=== PATIENT | male | born 1940 | race Caucasian/White ===

== ENCOUNTER → 2017-07-11 11:03 | Outpatient (CLI) | payer MEDICARE | END | disposition home or self-care (01) | LOC: D.MRI 11:03 | DX: M54.16 Radiculopathy, lumbar region (principal) ==

== ENCOUNTER → 2017-11-08 11:35 | Outpatient (CLI) | payer MEDICARE | END | disposition home or self-care (01) | LOC: D.RAD 11:35 | DX: M25.511 Pain in right shoulder (principal) ==

== ENCOUNTER → 2018-09-12 09:19 | Outpatient (CLI) | payer MEDICARE | END | disposition home or self-care (01) | LOC: D.RAD 09:19 | DX: R05 Cough (principal) ==

== ENCOUNTER 2018-10-19 08:04 | Day surgery (SDC) | payer MEDICARE ==
[~2018-10-19] VITALS: Ht 185.4 cm; Wt 88.9 kg
[2018-10-19 08:45] LABS: HEMATOCRIT 44.3 % (42.0-54.0); HEMOGLOBIN 15.5 g/dL (13.5-17.5); MCH 31.8 pg (26.0-34.0); MCV 90.8 fL (80.0-100.0); MEAN PLATELET VOLUME 10.3 fL (7.4-10.4); RBC 4.88 10x6/uL (4.20-6.10); RDW 13.5 % (11.5-14.5); WBC 5.7 10x3/uL (4.8-10.8)
[2018-10-19 09:58] VITALS: BP 102/55; Ht 185.4 cm; Wt 88.9 kg
--- NOTE | 2018-10-19 12:35 | NUR ---
FL TRAY SERVED. UP TO BATHROOM. ICE WATER BROUGHT TO PT. FAMILY AT BEDSIDE.
--- NOTE | 2018-10-19 12:45 | NUR ---
1230-RETURNS TO ROOM FROM PACU. ALERT. USES URINAL IMMEDIATELY, BLOODY. 1240-DR ISRAEL IN TO REPORT AND ANSWER QUESTIONS. 1245-FULL LIQUIDS SERVED.
--- NOTE | 2018-10-19 13:00 | NUR ---
TOLERATED FL TRAY. IV DC'D WITH CATHETER INTACT. RELATES HE IS READY TO GO HOME.
--- NOTE | 2018-10-19 13:08 | OP ---
PATIENT NAME: CINTHYA DURAN MEDICAL RECORD: [id number] :42 LOCATION:[facility] ADMISSION DATE: SURGEON: MELITA ISRAEL MD DATE OF OPERATION: 10/19/2018 SURGEON: Melita Israel MD ANESTHESIA: TIVA by BRADLEY Olivia CRNA DIAGNOSES: Obstructive benign prostatic hypertrophy, PSA 1.7 on 08/16/2017, ISABELLA gives a 40 gram prostate, IPSS score is 17 and quality of life score is 5. PROCEDURE: UroLift times 5 implants deployed, 4 held in the box configuration. FINDINGS: Obstructive bladder neck and anterior urethra, nonobstructive lateral lobes. ESTIMATED BLOOD LOSS: None. SPECIMENS: None. CLINICAL HISTORY: This is a 78-year-old male, who has obstructive voiding symptoms. He has nocturia times 1-5. He has had problems with nocturia since he was age 31. He now has hesitancy as well as a weak flow. He is not taking any medications for BPH and he does not want to be taking medications for BPH. Therefore, he wishes to proceed with a UroLift implantation. He is not allergic to any medication. He was given Ancef calibration specialist to the OR. DESCRIPTION OF PROCEDURE: The patient was given IV sedation. He was then placed into dorsal lithotomy position. The UroLift scope was introduced. The prostatic urethra shows no obstruction by the lateral lobes. All the obstruction is located at the bladder neck level. Going into the bladder, there are single ureteral orifices on each side. The bladder is moderately trabeculated, but no bladder tumors are seen. I decided to open up the bladder neck by putting 4 UroLift implants in the box configuration. I started with the left bladder neck region at about the 1 o'clock position in the lateral anterior lobe. The first device struck bone and jammed. I tried to free it up using the tool in the slots of the device. It did finally release, but I do not think that the clip fully attached. The device was removed. A second attempt to fire the device in this location did hold. On the right side at about the 11 o'clock position, a similar device was placed about 1.5 cm distal to the bladder neck. Finally, we did a mid lobe device implants, one on each side at the 3 and 9 o'clock positions. These were again placed 1.5 cm distal to the bladder neck. At the end of the procedure, there was nice bladder neck opening. The bladder was partly emptied and the scope was removed. I left some fluid in there, so that we could see if he can void today or not. If he is unable to void, he will have to go home with the catheter. Otherwise, I will see him in 1 months' time to check on his voiding symptoms. TRANSINT:[id number] Voice Confirmation ID: [id number] DOCUMENT ID: [id number] OPERATIVE REPORT [id number] CINTHYA DURAN ROBERT S MD at 1308 CC: [id number] DICTATION DATE: 10/19/18 1230 HVAC SALES ENGINEER: 10/19/18 1257 [facility] [address] [place] [address]
--- NOTE | 2018-10-19 13:15 | NUR ---
WRITTEN AND VERBAL DC INST. GIVEN TO PT. VERBALIZED UNDERSTANDING.
--- NOTE | 2018-10-19 13:30 | NUR ---
DC'D HOME WITH FAMILY VIA PRIVATE VEHICLE. TAKEN TO VEHICLE VIA WC. STABLE AT TIME OF DC.
== END 2018-10-19 13:30 | disposition home or self-care (01) ==
LOC: D.OPS 08:04
PROVIDERS: Anesthesiology; ATTEND Urology
DX: N40.1 Benign prostatic hyperplasia with lower urinary tract symptoms (principal); N13.8 Other obstructive and reflux uropathy; R35.1 Nocturia; Z01.812 Encounter for preprocedural laboratory examination

== ENCOUNTER → 2018-12-01 12:01 | Outpatient (CLI) | payer MEDICARE ==
[2018-10-19 09:58] VITALS: BMI 25.9
--- NOTE | ~2018-12-01 | HEMODYNAMI ---
PATIENT:CINTHYA DURAN MEDICAL RECORD: [id number] : 42 LOCATION:[facility] ADMISSION DATE: 12/01/18 Generatedon:12/01/201813:33 Patient name: CINTHYA DURAN Patient #: [id number] SSN: : 1940 Date of study: 12/01/2018 Page: Of Hemodynamic Procedure Report Patient Data Patient Demographics Procedure consent was obtained First Name: CINTHYA Gender: Male Last Name: RENEE : 1940 Middle Initial: RITU Age: 78 year(s) Patient #: [id number] Race: Unknown Additional ID: [id number] Contact details Address: [address] [place] [address] [place] State: [place] City: [place] Zip code: [address] Past Medical History Allergies: No known allergies Admission Admission Data Admission Date: 12/01/2018 Admission Time: 12:01 Procedure Procedure Types Cath Procedure Peripheral Cath Diagnostic Procedure Miscellaneous Aspiration/Injection (Joint) Procedure Description Procedure Date Procedure Date: 12/01/2018 Procedure Start Time: 13:24 Procedure Staff Name Function Abdullahi Odom MD Performing Physician James Dickerson RT Monitor Carmina Collins RN Nurse Procedure Data Cath Procedure Fluoroscopy Diagnostic fluoroscopy Total fluoroscopy Time: 0.4 time: 0.4 min min Diagnostic fluoroscopy Total fluoroscopy dose: 3 dose: 3 mGy mGy Hemodynamics Rest Pre Cath Intra NCS Post Cath Procedure Log Time Note 13:05:04 James Dickerson RT (R) (CV) sent for patient. Start room use. 13:05:15 Time tracking: Regular hours (M-F 7:00 - 5:00) 13:05:20 Plan of Care:Hemodynamics will remain stable., Cardiac rhythm will remain stable., Comfort level will be maintained., Respiratory function will remain adequate., Patient/ family verbilizes understanding of procedure., Procedure tolerated without complication., Recovers from procedure without complications.. 13:05:25 Patient received from Outpatients to IR Alert and oriented. Tansferred to table in Supine position. 13:05:26 Correct patient and procedure confirmed by team. 13:05:28 Signed procedure consent form obtained from patient. 13:05:30 Full Disclosure recording started 13:05:30 - 13:05:32 Pre-procedure instructions explained to patient. 13:05:32 Pre-op teaching completed and patient verbalized understanding. 13:05:40 Patient allergic to No known allergies 13:05:45 Is patient on blood thinner?No 13::57 Left groin area was prepped with betadine and draped in sterile fashion 13:24:23 Physician arrived 13:24:23 --------ALL STOP TIME OUT------ 13:24:24 Final Timeout: patient, procedure, and site verified with staff and physician. All members of the team are in agreement. 13:24:26 Left groin site verified by team. 13:24:39 Sedation plan: Local Anesthetic Medication:Lidocaine 13:24:49 Procedure started. 13:24:57 Local anesthetic to Left Hip with Lidocaine 1% by Abdullahi Odom MD.INITIAL ACCESS ONLY 13:25:04 SAFE-T PLUS MYELOGRAM TRAY opened to sterile field. 13:31:49 Procedure ended.(Physican Out) 13:32:07 Fluoroscopy time 00.40 minutes. 13:32:10 Fluoroscopy dose: 3 mGy 13:32:10 Flurop Dose total: 3 13:33:35 bandaide applied site stable pt sent home Device Usage Item Name Manufacture Quantity Catalog Hospital Part Current Minimal Lot# / Number Charge Number Stock Stock Serial# Code SAFE-T CareFusion 1 [id number] PLUS MYELOGRAM TRAY Signature Audit [place] Stage Time Signature Unsigned Intra-Procedure 12/01/2018 James 1:33:53 PM Shuffield RT (R) (CV) Signatures Monitor : James Signature : Charlesield RT Date : Time : [place] [address] [place] [address]
== END | disposition home or self-care (01) ==
LOC: D.RAD 11-30 13:30 → D.SP 12:01 → D.RAD 13:00 → D.SP 13:00
PROVIDERS: ATTEND Orthopaedic Surgery
DX: M16.12 Unilateral primary osteoarthritis, left hip (principal); Z01.812 Encounter for preprocedural laboratory examination

== ENCOUNTER → 2019-09-20 08:35 | Outpatient (CLI) | payer MEDICARE ==
[2018-10-19 09:58] VITALS: BMI 25.9
== END | disposition home or self-care (01) ==
LOC: D.RAD 08:35
PROVIDERS: ATTEND Family Medicine
DX: R05 Cough (principal)

== ENCOUNTER → 2019-12-07 10:20 | Outpatient (CLI) | payer MEDICARE ==
[2018-10-19 09:58] VITALS: BMI 25.9
== END | disposition home or self-care (01) ==
LOC: D.MRI 10:20
PROVIDERS: ATTEND Family Medicine
DX: M54.42 Lumbago with sciatica, left side (principal)

== ENCOUNTER → 2020-02-09 12:36 | Outpatient (CLI) | payer MEDICARE ==
[2018-10-19 09:58] VITALS: BMI 25.9
== END | disposition home or self-care (01) ==
LOC: D.LAB 12:36
PROVIDERS: ATTEND Internal Medicine Pulmonary Disease
DX: Z11.59 Encounter for screening for other viral diseases (principal)

== ENCOUNTER → 2020-02-12 08:35 | Outpatient (CLI) | payer MEDICARE ==
[2018-10-19 09:58] VITALS: BMI 25.9
== END | disposition home or self-care (01) ==
LOC: D.RT 08:35
PROVIDERS: ATTEND Internal Medicine Pulmonary Disease
DX: R05 Cough (principal); Z11.59 Encounter for screening for other viral diseases

== ENCOUNTER → 2020-02-26 12:25 | Day surgery (SDC) | payer MEDICARE ==
[2018-10-19 09:58] VITALS: BMI 25.9
--- NOTE | ~2020-02-26 | HEMODYNAMI ---
PATIENT:CINTHYA DURAN MEDICAL RECORD: [id number] : 42 LOCATION:[facility] ADMISSION DATE: 02/26/20 Generatedon:02/26/202013:19 Patient name: CINTHYA DURAN Patient #: [id number] SSN: : 1940 Date of study: 02/26/2020 Page: Of Hemodynamic Procedure Report Patient Data Patient Demographics Procedure consent was obtained First Name: CINTHYA Gender: Male Last Name: RENEE : 1940 Middle Initial: RITU Age: 79 year(s) Patient #: [id number] Race: Unknown Additional ID: [id number] Contact details Address: [address] State: [place] City: [place] Zip code: [address] Past Medical History Allergies: No known allergies Admission Admission Data Admission Date: 02/26/2020 Admission Time: 12:25 Procedure Procedure Types Cath Procedure Peripheral Cath Diagnostic Procedure Miscellaneous Aspiration/Injection (Joint) Procedure Description Procedure Date Procedure Date: 02/26/2020 Procedure Start Time: 13:06 Procedure Staff Name Function Gen Caballero MD Performing Physician James Dickerson RT Monitor Procedure Data Cath Procedure Fluoroscopy Diagnostic fluoroscopy Total fluoroscopy Time: 0.5 time: 0.5 min min Diagnostic fluoroscopy Total fluoroscopy dose: 5 dose: 5 mGy mGy Hemodynamics Rest Pre Cath Intra NCS Post Cath Procedure Log Time Note 12:56:23 James Dickerson RT (R) (CV) sent for patient. Start room use. 12:56:45 Patient received from Other to IR Alert and oriented. Tansferred to table in Supine position. 12:56:47 Signed procedure consent form obtained from patient. 12:56:49 Correct patient and procedure confirmed by team. 12:56:51 Full Disclosure recording started 12:56:51 - 12:56:53 Pre-procedure instructions explained to patient. 12:56:54 Pre-op teaching completed and patient verbalized understanding. 12:57:14 NKDA 12:57:19 Is patient on blood thinner?No 12:57:31 Left Hip was prepped with betadine and draped in sterile fashion. 13:00:52 Physician arrived 13:00:53 --------ALL STOP TIME OUT------ 13:00:54 Final Timeout: patient, procedure, and site verified with staff and physician. All members of the team are in agreement. 13:00:56 Left groin site verified by team. 13:01:08 Sedation plan: Local Anesthetic Medication:Lidocaine 13:01:40 SAFE-T PLUS MYELOGRAM TRAY opened to sterile field. 13:06:28 Procedure started. 13:06:34 Local anesthetic to Left Hip with Lidocaine 1% by Gen Caballero MD.INITIAL ACCESS ONLY 13:15:26 Procedure ended.(Physican Out) 13:16:44 Fluoroscopy time 00.50 minutes. 13:16:50 Fluoroscopy dose: 5 mGy 13:16:50 Flurop Dose total: 5 13:18:46 Bandaide applied site stable pt sent home Device Usage Item Name Manufacture Quantity Catalog Hospital Part Current Minimal Lot# / Number Charge Number Stock Stock Serial# Code SAFE-T CareFusion 1 [id number] PLUS MYELOGRAM TRAY Signature Audit [place] Stage Time Signature Unsigned Intra-Procedure 02/26/2020 James 1:19:39 PM Tuan RT (R) (CV) [facility] [address] [place] [address]
== END | disposition home or self-care (01) ==
LOC: D.SP 12:00
PROVIDERS: ATTEND Nurse Practitioner Family
DX: M16.12 Unilateral primary osteoarthritis, left hip (principal)

== ENCOUNTER → 2020-03-17 12:13 | Outpatient (CLI) | payer MEDICARE ==
[2018-10-19 09:58] VITALS: BMI 25.9
== END | disposition home or self-care (01) ==
LOC: D.MRI 12:13
PROVIDERS: ATTEND Orthopaedic Surgery
DX: M54.16 Radiculopathy, lumbar region (principal)

== ENCOUNTER → 2020-12-24 09:40 | Day surgery (SDC) | payer MEDICARE ==
[2018-10-19 09:58] VITALS: BMI 25.9
--- NOTE | 2020-12-23 12:07 | NUR ---
CONFIRMED PT APPT FOR RIGHT HIP INJECTION 12/24/20
--- NOTE | ~2020-12-24 | HEMODYNAMI ---
PATIENT:CINTHYA DURAN MEDICAL RECORD: [id number] : 42 [id number] AD[facility]ION DATE: 12/24/20 Generatedon:110:52 Patient name: CINTHYA DURAN Patient #: [id number] SSN: : 1940 Date of study: 12/24/2020 Page: Of Hemodynamic Procedure Report Patient Data Patient Demographics Procedure consent was obtained First Name: CINTHYA Gender: Male Last Name: RENEE : 1940 Middle Initial: RITU Age: 80 year(s) Patient #: [id number] Race: Unknown Additional ID: [id number] Contact details [address]: [address] [place] [address] State: [place] City: [place] Zip code: [address] Past Medical History Allergies: No known allergies Admission Admission Data Admission Date: 12/24/2020 Admission Time: 9:40 Procedure Procedure Types Cath Procedure Peripheral Cath Diagnostic Procedure Miscellaneous Aspiration/Injection (Joint) Procedure Description Procedure Date Procedure Date: 12/24/2020 Procedure Start Time: 10:44 Procedure Staff Name Function Gen Caballero MD Performing Physician James Dickerson RT Monitor Procedure Data Cath Procedure Fluoroscopy Diagnostic fluoroscopy Total fluoroscopy Time: 0.3 time: 0.3 min min Diagnostic fluoroscopy Total fluoroscopy dose: 3 dose: 3 mGy mGy Hemodynamics Rest Pre Cath Intra NCS Post Cath Procedure Log Time Note 10:31:57 James Dickerson RT (R) (CV) sent for patient. Start room use. 10:32:12 Patient received from Other to IR Alert and oriented. Tansferred to table in Supine position. 10:32:15 Signed procedure consent form obtained from patient. 10:32:16 Correct patient and procedure confirmed by team. 10:32:16 - 10:32:19 Pre-procedure instructions explained to patient. 10:32:20 Pre-op teaching completed and patient verbalized understanding. 10:32:37 PT STATES NO ALLERGIES OR BLOOD THINNERS 10:32:54 Right Hip was prepped with betadine and draped in sterile fashion. 10:33:04 SAFE-T PLUS MYELOGRAM TRAY opened to sterile field. 10:43:49 Physician arrived 10:43:49 --------ALL STOP TIME OUT------ 10:43:50 Final Timeout: patient, procedure, and site verified with staff and physician. All members of the team are in agreement. 10:44:00 Right groin site verified by team. 10:44:04 Sedation plan: Local Anesthetic Medication:Lidocaine 10:44:42 Procedure started. 10:44:42 Full Disclosure recording started 10:44:49 Local anesthetic to Right Hip with Lidocaine 1% by Gen Caballero MD.INITIAL ACCESS ONLY 10:51:08 Procedure ended.(Physican Out) 10:51:26 Fluoroscopy time 00.30 minutes. 10:51:29 Fluoroscopy dose: 3 mGy 10:51:29 Flurop Dose total: 3 10:52:06 BANDAIDE APPLIED SITE STABLE PT SENT HOME Device Usage Item Name Manufacture Quantity Catalog Hospital Part Current Minimal Lot# / Number Charge Number Stock Stock Serial# Code SAFE-T CareFusion 1 [id number] PLUS MYELOGRAM TRAY Signature Audit [place] Stage Time Signature Unsigned Intra-Procedure 12/24/2020 James 10:52:24 AM Tuan RT (R) (CV) [facility] [address] [place] [address]
== END | disposition home or self-care (01) ==
LOC: D.RAD 09:40
PROVIDERS: ATTEND Nurse Practitioner Family
DX: M16.11 Unilateral primary osteoarthritis, right hip (principal)